=== PATIENT | female | born 1985 | race Caucasian/White ===

== ENCOUNTER → 2020-06-30 09:04 | Outpatient (CLI) | payer BC, SELFPAY ==
--- NOTE | ~2020-06-30 | MMUS_ITS ---
EXAMINATION: MM diagnostic manuel BI w deborah, US breast LT limited HISTORY: Palpable lump of the upper outer quadrant of the left breast TECHNIQUE: Craniocaudal, mediolateral, and mediolateral oblique 3-D tomosynthesis images of the breas ts were performed and synthetic 2-D images were generated. Spot compression views of the left breast are also obtained. CAD analysis was submitted and interpreted. High resolution limited left breast ul trasound was performed. COMPARISON: None, baseline BREAST PARENCHYMAL COMPOSITION: The breasts are extremely dense, which lowers the sensitivity of mamm ography. FINDINGS: MAMMOGRAPHIC FINDINGS: There is no evidence of suspicious mass, calcification, or architectural distortion in either breast to suggest malignancy. No mammographic correlate is identified for the reported palpable abnormality of the left breast. ULTRASOUND: There is no evidence of focal abnormal solid or cystic lesion in the vicinity of the reported palpabl e abnormality concern of the left breast. IMPRESSION: 1. No specific mammographic or sonographic correlate is identified for the reported palpable abnormal ity of concern in the left breast. Further evaluation at this time should be based on clinical assess ment. Continued follow-up physical examination is recommended. 2. Recommend routine screening mammography beginning at age 40. BI-RADS Category 1: Negative Reviewed, dictated and finalized at location A. RY DERRICK OPERATOR IMPRESSION: 1. No specific mammographic or sonographic correlate is identified for the repo rted palpable abnormality of concern in the left breast. Further evaluation at this time should be based on clinical assessment. Continued follow-up physical examination is recommended. 2. Recommend routine screening mammography beginning at age 40. BI-RADS Category 1: Negative
== END ==
PROVIDERS: Visit Provider Obstetrics & Gynecology
DX: N63.22 Unspecified lump in the left breast, upper inner quadrant (principal)
CPT/HCPCS: 76642; 77062; 77066; G0279

== ENCOUNTER 2024-07-22 14:16 | Outpatient (CLI) | payer OTHER, SELFPAY ==
--- NOTE | ~2024-07-22 | MM_ITS ---
EXAMINATION: MM screening manuel BI w deborah HISTORY: Screening TECHNIQUE: Craniocaudal and mediolateral oblique 3-D tomosynthesis images were obtained and synthetic 2-D images were generated. CAD analysis was submitted and interpreted. COMPARISON: Comparison to multiple prior studies sequentially, with oldest reviewed study dated 11/2020. BREAST PARENCHYMAL COMPOSITION: Dense: The breasts are extremely dense, which lowers the sensitivity of mammography. FINDINGS: There is no evidence of suspicious mass, calcification, or architectural distortion to sugg est malignancy in either breast. There has been no suspicious interval change. IMPRESSION: 1. No mammographic evidence of malignancy. 2. Recommend routine screening mammography in one year. BI-RADS Category 1: Negative Reviewed, dictated and finalized at location A. O VISUAL DIRECTOR
--- OUTSIDE RECORDS SUMMARY | 2024-07-22 14:50 | XMS_ITS | Clinical Summary ---
Author Organization [facility] at the [facility] Office Center Address [address] [place] [address] Care Team Providers Care Software Test Manager Name Role Phone Marian Brar NP Primary Care Provider [phone] Allergies Active Allergy Reactions Criticality Noted Date Comments Amoxicillin-Pot Clavulanate Anaphylaxis High 10/16/2017 Rapid onset respiratory compromise, wheezing, rash Medications EPINEPHrine 0.3 mg/0.3 mL auto-injection syringe Inject 0.3 mL (0.3 mg total) as directed once Active benzonatate (TESSALON) 100 mg capsuleIndicati ons:Cough Take 1 capsule (100 mg total) by mouth 3 (three) times a day as needed for cough 30 capsule 10/10/2023 Active Active Problems Problem Noted Date Diagnosed Date Annual physical exam 05/26/2024 Upper respiratory tract infection 10/10/2023 Assessment & Plan (10/10/2023 11:14 AM CDT): Increase fluids. Tylenol or ibuprofen p.r.n.. Diet as tolerated. Saline nasal spray/rinses. Start on azithromycin as directed. Follow-up if symptoms are not resolving or worsen. Acute cough 10/10/2023 Assessment & Plan (10/10/2023 11:14 AM CDT): Tessalon Perles p.r.n. Resolved Problems Problem Noted Date Diagnosed Date Resolved Date No pertinent past medical history 06/14/2023 06/14/2023 Screening for diabetes mellitus 06/14/2023 10/10/2023 Assessment & Plan (06/14/2023 9:37 AM IT SUPPORT ANALYST): No family hx DM Screening labs ordered Screening, anemia, deficiency, iron 06/14/2023 10/10/2023 Assessment & Plan (06/14/2023 9:33 AM IT SUPPORT ANALYST): Screening labs ordered Screening for thyroid disorder 06/14/2023 10/10/2023 Assessment & Plan (06/14/2023 9:34 AM IT SUPPORT ANALYST): No thyromegaly or palpable abnormalities Family hx of sister with hypothyroidism Screening labs ordered Screening, lipid 06/14/2023 10/10/2023 Assessment & Plan (06/14/2023 9:33 AM IT SUPPORT ANALYST): Eats a low fat diet Exercises routinely Screening labs ordered Encounter for annual physical exam 06/14/2023 10/10/2023 Assessment & Plan (06/14/2023 9:38 AM IT SUPPORT ANALYST): Physical completed Screening labs ordered Follow up in 1 year for annual physical; sooner if needed Acute pain of left foot 06/14/202309/23 Assessment & Plan (06/14/2023 9:40 AM IT SUPPORT ANALYST): Mild single point tenderness over L mid metarsal ray 1 Avoid direct pressure over area as much as possible It is resolving with rest and conservative measures Not suspicious for fracture Immunizations Name Administration Dates Next Due Influenza, Quadrivalent, Hina l Culture-based MDCK, Preservative Free, Antibiotic Free, Intramuscular 03/26/2023 Influenza, Quadrivalent, Spl it, Intramuscular 04/26/2020,2019 Influenza, Quadrivalent, Spl it, Preservative Free, Intramuscular 05/02/2021,02/28/2018,03/22/2016 Influenza, Trivalent, IM (MDV) 03/15/2015 Influenza, Unspecified 05/21/2024(Deferr ed: Patient Refused),06/14/2023(Deferred: Patient Refused),04/02/2023(Deferred: Patient Refused),04/06/2022(Deferred: Patient Refused) Tdap 02/28/2018,07/12/2016,11/29/2014 Medical History Medical History Date Comments History of kidney stones Encounter for annual physical exam Acute pain of left foot Family History Medical History Relation Name Comments No Known Problems Father No Known Problems Mother Relation Name Status Comments Father Alive Mother Alive Social History Tobacco Use Types Packs/Day Years Used Date Smoking Tobacco: Never Smokeless Tobacco: Never Tobacco Cessation:Counseling Given: Not Answered PHQ-2 Answer Date Recorded PHQ-2 Total Score (If total score is 3 or more points, staff should administer the PHQ-9) 0 06/14/2023 Personal Safety Answer Date Recorded Getting School Help Needed Not on file 06/06 Comments Unknown Sex and Gender Information Value Date Recorded Sex Assigned at Not on file Legal Sex Female 1:11 PM CDT Gender Identity Not on file Sexual Orientation Not on file Obstetrics History Para Term AB IAB SAB Ectopic Multiple Livin g Live Births 3 3 3 3 3 Date Outcome GA Total Labor Labor/2nd/3rd Weight Sex Type Anes PTL Natalia A1 A5 Name Clin 2014 Term 42w 0d 18h 28m 16h 17m/2h 07m/0h 04m 3.175 kg (7 lb) F Vag-S pont Epidur al N Livin g 9 9 Clarice Oconnell MD Delivery Location:[facility] 2016 Term 41w 0d 3h 48m 3h 04m/0h 40m/0h 04m 3.925 kg (8 lb 10.5 oz) F Vag-S pont Epidur al N Livin g 9 9 LOPEZ ,GIRL Shannon tenorio MD Delivery Location:[facility] 2017 Term 39w 1d 4h 11m 3h 58m/0h 11m/0h 02m 3.49 kg (7 lb 11.1 oz) M Vag-S pont Epidur al N Livin g 8 9 JESSICA ,BOY Nette Stearns MD Complications:None Delivery Location:[facility] ( 1NW-A) Last Filed Vital Signs Vital Sign Reading Time Taken Comments Blood Pressure 100/80 10/10/2023 10:36 AM CDT Pulse 94 10/10/2023 10:36 AM CDT Temperature 36.3 ??C (97.3 ??F) 10/10/2023 10:36 AM C DT Respiratory Rate - - Oxygen Saturation 99% 10/10/2023 10:36 AM CDT Inhaled Oxygen Concentration - - Weight 62.7 kg (138 lb 4.8 oz) 10/10/2023 10:36 AM CDT Height 170.2 cm (5' 7.01 ) 10/10/2023 10:36 AM C DT Body Mass Index 21.66 10/10/2023 10:36 AM CDT Plan of Treatment Health Maintenance Due Date Last Done Comments Breast Cancer Screening-Mammogram 1984 Cervical Cancer Screening 1984 Hepatitis C Screening 1984 Hepatitis B Screening 2002 Covid-19 Vaccine ( season) 2024 05/02/2021, 08/25/2020, 08/03/2020 Influenza Vaccine (#1) 2024 , 05/02/2021, 04/26/2020, Additional history exists Depression Screening 06/14/2024 06/14/2023, 06/14/20 23 Regular Well Visit/Exam 18-64 06/14/2024 06/14/2023 DTaP/Tdap/Td Vaccine (4 - Td or Tdap) 02/29/2028 02/28/2018, 07/12/2016, 11/29/2014 HPV Vaccines Aged Out No longer eligi ble based on patient's age to complete this topic Pneumococcal vaccine <65 Aged Out No longer eligible based on patient's age to complete this topic Varicella Vaccines Discontinued Insurance [facility] CORE Care Teams Software Test Manager Relationship Specialty Start Date End Date Marian Brar NP PCP - General Director Of Slot Operations 06/14/23
--- OUTSIDE RECORDS SUMMARY | 2024-07-22 14:50 | XMS_ITS | Referral Summary ---
Author Organization [facility] at the [facility] Office Center Address [address] [place] [address] Care Team Providers Care Colorist Formulator Name Role Phone Marian Brar NP Primary Care Provider [phone] Allergies Active Allergy Reactions Criticality Noted Date [...] 10/10/2023 Assessment & Plan (06/14/2023 9:37 AM SHADE MAKER): No family hx DM Screening labs ordered Screening, anemia, deficiency, iron 06/14/2023 10/10/2023 Assessment & Plan (06/14/2023 9:33 AM SHADE MAKER): Screening labs ordered Screening for thyroid disorder 06/14/2023 10/10/2023 Assessment & Plan (06/14/2023 9:34 AM SHADE MAKER): No thyromegaly or palpable abnormalities Family hx of sister with hypothyroidism Screening labs ordered Screening, lipid 06/14/2023 10/10/2023 Assessment & Plan (06/14/2023 9:33 AM SHADE MAKER): Eats a low fat diet Exercises routinely Screening labs ordered Encounter for annual physical exam 06/14/2023 10/10/2023 Assessment & Plan (06/14/2023 9:38 AM SHADE MAKER): Physical completed Screening labs ordered Follow up in 1 year for annual physical; sooner if needed Acute pain of left foot 06/14/202309/23 Assessment & Plan (06/14/2023 9:40 AM SHADE MAKER): Mild single point tenderness over L mid [...] Refused),04/02/2023(Deferred: Patient Refused),04/06/2022(Deferred: Patient Refused) Tdap 02/28/2018,07/12/2016,11/29/2014 Social History Tobacco Use Types Packs/Day Years [...] on file Sexual Orientation Not on file Last Filed Vital Signs Vital Sign Reading [...] 10/10/2023 10:36 AM CDT Plan of Treatment Not on file [place] [address] [facility] CORE Care Teams Colorist Formulator Relationship Specialty Start Date End Date Marian Brar NP PCP - General Stock Replenisher 06/14/23
== END 2024-07-22 14:17 | disposition home or self-care (01) ==
LOC: ANHIMG 14:18
PROVIDERS: Visit Provider Nurse Practitioner Family
DX: Z12.31 Encounter for screening mammogram for malignant neoplasm of breast (principal)
CPT/HCPCS: 77063; 77067

== ENCOUNTER 2025-02-24 16:11 | Emergency (ER) | payer OTHER, SELFPAY ==
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
--- NOTE | ~2025-02-24 | XR_ITS ---
[XR ribs RT 2V w CXR 2V ] INDICATION: Right rib pain TECHNIQUE: Frontal projection of the upper right ribs, frontal projection of the lower right ribs, oblique projection of all the right ribs, frontal inspiratory chest x-ray for interpretation. FINDINGS: There are no displaced rib fractures identified. There are no soft tissue abnormality seen. The lungs are clear. IMPRESSION: 1:No acute displaced rib fractures. Reviewed, dictated and finalized at location O.
--- OUTSIDE RECORDS SUMMARY | 2025-02-24 16:13 | XMS_ITS | Clinical Summary ---
Author Organization [facility] at the [facility] Office Center Address [address] [place] [address] Care Team Providers Care Sales Utility Representative Name Role Phone Marian Brar NP Primary Care Provider [phone] Allergies Active Allergy Reactions Criticality Noted Date [...] 10/10/2023 Assessment & Plan (06/14/2023 9:37 AM PATTERNMAKER GRADER): No family hx DM Screening labs ordered Screening, anemia, deficiency, iron 06/14/2023 10/10/2023 Assessment & Plan (06/14/2023 9:33 AM PATTERNMAKER GRADER): Screening labs ordered Screening for thyroid disorder 06/14/2023 10/10/2023 Assessment & Plan (06/14/2023 9:34 AM PATTERNMAKER GRADER): No thyromegaly or palpable abnormalities Family hx of sister with hypothyroidism Screening labs ordered Screening, lipid 06/14/2023 10/10/2023 Assessment & Plan (06/14/2023 9:33 AM PATTERNMAKER GRADER): Eats a low fat diet Exercises routinely Screening labs ordered Encounter for annual physical exam 06/14/2023 10/10/2023 Assessment & Plan (06/14/2023 9:38 AM PATTERNMAKER GRADER): Physical completed Screening labs ordered Follow up in 1 year for annual physical; sooner if needed Acute pain of left foot 06/14/202309/23 Assessment & Plan (06/14/2023 9:40 AM PATTERNMAKER GRADER): Mild single point tenderness over L mid metarsal ray 1 Avoid direct pressure over area as much as possible It is resolving with rest and conservative measures Not suspicious for fracture Immunizations Immunization Administration Dates Next Due Influenza, Quadrivalent, Hina [...] kidney stones Encounter for annual physical exam 06/14/2023 Acute pain of left foot 06/14/2023 Family History Medical History Relation Name Comments [...] g 9 9 Clarice Oconnell MD Delivery Location:[facility] 2016 Term 41w 0d 3h 48m 3h 04m/0h 40m/0h 04m 3.925 kg (8 lb 10.5 oz) F Vag-S pont Epidur al N Livin g 9 9 JESSICA ,GIRL Shannon tenorio MD Delivery Location:[facility] 2017 Term 39w 1d 4h 11m 3h 58m/0h 11m/0h 02m 3.49 kg (7 lb 11.1 oz) M Vag-S pont Epidur al N Livin g 8 9 JESSICA ,BOY Nette Stearns MD Complications:None Delivery Location:[facility] (EH 1NW-A) Last Filed Vital Signs Vital Sign Reading Time Taken Comments Blood Pressure 100/80 10/10/2023 10:36 AM CDT Pulse 94 10/10/2023 10:36 AM CDT Temperature 36.3 C (97.3 F) 10/10/2023 10:36 AM CDT Respiratory Rate - - Oxygen Saturation 99% 10/10/2023 10:36 AM CDT Inhaled Oxygen Concentration - - Weight 62.7 kg (138 lb 4.8 oz) 10/10/2023 10:36 AM CDT Height 170.2 cm (5' 7.01) 10/10/2023 10:36 AM C DT Body Mass Index 21.66 10/10/2023 10:36 AM CDT Plan of Treatment Health Maintenance Due Date Last Done Comments Breast Cancer Screening-Mammogram 1984 Cervical Cancer Screening 1984 Hepatitis C Screening 1984 Hepatitis B Screening 2002 HPV Vaccines (1 - 3-dose SCDM series) 2011 Covid-19 Vaccine ( season) 2024 05/02/2021, 08/25/2020, 08/03/2020 Depression Screening 06/14/2024 06/14/2023, 06/14/20 23 Regular Well Visit/Exam 18-64 06/14/2024 06/14/2023 Influenza Vaccine (#1) 2025 , 05/02/2021, 04/26/2020, Additional history exists DTaP/Tdap/Td Vaccine (4 - Td or Tdap) 02/29/2028 02/28/2018, 07/12/2016, 11/29/2014 Pneumococcal vaccine <65 Aged Out No longer eligible based on patient's age to complete this topic Varicella Vaccines Discontinued Insurance [facility] CORE Care Teams Sales Utility Representative Relationship Specialty Start Date End Date Marian Brar NP PCP - General Deicer Repairer 06/14/23
[2025-02-24 16:20] VITALS: BP 152/102; PULSE 79; RESP 16; TEMP 36.8; O2SAT 98
[2025-02-24 18:46] VITALS: BP 123/89; PULSE 71; RESP 16; O2SAT 98
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
[2025-02-24] MEDS: IBUPROFEN 400 MG TABLET 800 MG PO (19:33)
[2025-02-24] MEDS: CYCLOBENZAPRINE HCL 10 MG TABLET PO (19:33)
--- NOTE | 2025-02-24 19:36 | PC.NURSE ---
Pt to imaging at this time/
== END 2025-02-24 21:01 | disposition home or self-care (01) ==
PROVIDERS: Emergency Provider Physician Assistant
DX: S16.1XXA Strain of muscle, fascia and tendon at neck level, initial encounter (principal); V89.2XXA Person injured in unspecified motor-vehicle accident, traffic, initial encounter
CPT/HCPCS: 71046; 71100; 72125; 73030; 99284; A9270